=== PATIENT | male | born 2000 | race Caucasian/White ===

== ENCOUNTER 2024-07-12 19:30 | Outpatient (REF) | payer OTHER, SELFPAY ==
--- NOTE | ~2024-07-12 | MR_ITS ---
EXAMINATION: MR ELBOW WITHOUT CONTRAST, LEFT CLINICAL INFORMATION: Left elbow pain. Injury on 07/02/2024. Pain and swelling. Instability. COMPARISON: None available. TECHNIQUE: MRI of the elbow was performed using routine sequences on a high-field scanner. FINDINGS: Ulnar collateral ligament: Complete, full-thickness tear through the distal insertion of the ulnar collateral ligament measuring up to 0.4 cm at the insertion upon the sublime tubercle. The proximal ligament is diffusely thickened and heterogeneous with increased T2 signal. Adjacent soft tissue edema with a small amount of fluid extending through the distal ligament tear and a resultant synovial recess measuring up to 1.2 cm. Common flexor tendon: Increased T2 signal/edema along the undersurface of the common flexor myotendinous junction, consistent with acute strain/partial tear. No full-thickness tendon tear or tendon retraction. Radial collateral ligament: Complete, full-thickness tear through the proximal aspect of the radial collateral ligament measuring up to 0.8 cm in length. Common extensor tendon: Increased T2 signal adjacent soft tissue edema at the common extensor tendon, consistent with acute strain/partial tear. No full-thickness transverse tendon tear or tendon retraction. Biceps/triceps tendon: Intact. Articular cartilage/bone: No acute fracture or dislocation. Mild marrow edema within the capitellum, consistent with an osseous contusion. Intact articular cartilage. No osteochondral lesion. Ulnar nerve: Intact. Joint fluid/soft tissues: Moderate joint effusion. Lateral subcutaneous edema. MR/MR elbow LT wo con IMPRESSION: 1. Complete, full-thickness tear through the distal insertion of the ulnar collateral ligament measuring 0.4 cm in length. Adjacent soft tissue edema with a resultant synovial recess measuring up to 1.2 cm. 2. Complete, full-thickness tear through the proximal aspect of the radial collateral ligament measuring 0.8 cm in length. 3. Acute strain/partial tear of the common flexor myotendinous junction. 4. Acute strain/partial tear of the common extensor tendon. 5. Mild osseous contusion within the capitellum. No osteochondral lesion. 6. Moderate joint effusion. Lateral subcutaneous edema. Electronically signed by: Ander Romano MD 07/13/2024 06:24 AM EDT
== END 2024-07-12 19:31 | disposition home or self-care (01) ==
LOC: HO.MRI 19:30
PROVIDERS: PCP Student in an Organized Health Care Education/Training Program; Visit Provider Student in an Organized Health Care Education/Training Program
DX: M25.322 Other instability, left elbow (principal)
CPT/HCPCS: 73221